=== PATIENT | female | born 1985 | race Caucasian/White ===

== ENCOUNTER 2018-09-07 06:50 | Day surgery (SDC) | payer OTHER ==
[2018-09-07] MEDS ORDERED: LIDOCAINE VISCOUS 2% 15 ML UDC MM STA (07:28)
[2018-09-07] MEDS ORDERED: MAG HYDROX/AL HYDROX/SIMETH 30 ML UDC PO STA (07:28)
[2018-09-07] MEDS ORDERED: SODIUM CHLORIDE 0.9% 1,000 ML IV ONE (07:28)
--- NOTE | 2018-09-07 07:32 | ED Physician Documentation ---
PD HPI ABD PAIN - Stated complaint Stated Complaint: ABD PX - Chief complaint Chief Complaint: Abd Pain - History obtained from History obtained from: Patient, Family - History of Present Illness Timing - onset: How many weeks ago (2) Timing - duration: Weeks (2) Timing - details: Gradual onset, Still present, Waxing and waning Quality: Cramping, Sharp, Pain Location: RUQ Radiation: Upper back Improved by: Other (nothing) Worsened by: Eating Associated symptoms: Nausea, Vomiting Similar symptoms before: Has not had sx before Recently seen: Clinic - Additional information Additional information: 32 y/o female previously well has developed abdominal pain after eating. She indicates this started about 2 weeks ago and at first was only after eating and she started some nexium and this did not seem to change the symptoms. She indicates that since 7pm last night she has had this pain persistent and she is vomiting bile. She indicates she took ibuprofen for a bad tooth for about 2 months and she discontinued this about one month ago. Review of Systems Constitutional: reports: Fever Eyes: denies: Decreased vision Ears: denies: Ear pain Nose: denies: Rhinorrhea / runny nose, Congestion Throat: denies: Sore throat Cardiac: denies: Chest pain / pressure, Palpitations Respiratory: denies: Dyspnea, Cough GI: reports: Abdominal Pain, Nausea, Vomiting : denies: Dysuria, Frequency Skin: denies: Rash Musculoskeletal: denies: Neck pain, Back pain, Extremity pain Neurologic: denies: Generalized weakness, Focal weakness, Numbness PD PAST MEDICAL HISTORY - Past Medical History Cardiovascular: None Respiratory: None Endocrine/Autoimmune: None GI: None 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 Tab] FLUoxetine [PROzac] 60 mg PO DAILY 11/09/15 11/09/15 oxyCODONE/ACET 5/325 [Percocet 5 1 - 2 each PO Q6H PRN #20 tablet 11/10/15 mg/325 mg] - Allergies Allergies/Adverse Reactions: Allergies Allergy/AdvReac Type Severity Reaction Status Date / Time No Known Drug Allergies Allergy Verified 09/07/18 06:59 - Social History Does the pt smoke?: Yes Smoking Status: Current every day smoker Does the pt drink ETOH?: No Does the pt have substance abuse?: No - Immunizations Immunizations are current?: Yes - POLST Patient has POLST: No PD ED PE NORMAL - Vitals Vital signs reviewed: Yes (normal ) - General General: Alert and oriented X 3, Well developed/nourished, Other (The patient appears to be in pain with client service coordinator tone and flat affect. ) - HEENT HEENT: Atraumatic, PERRL, EOMI - Neck Neck: Supple, no meningeal sign, No bony TTP - Cardiac Cardiac: RRR, No murmur - Respiratory Respiratory: No respiratory distress, Clear bilaterally - Abdomen Abdomen: Soft, Other (RUQ tenderness with arrest of inspiration with palpation. LUQ is not tender. Mild tenderness to the right CVA. ) - Back Back: No spinal TTP - Derm Derm: Normal color, Warm and dry, No rash - Extremities Extremities: No deformity, No edema - Neuro Neuro: Alert and oriented X 3, test analyst 2-12 intact, No motor deficit, No sensory deficit, Normal speech Eye Opening: Spontaneous Motor: Obeys Commands Verbal: Oriented GCS Score: 15 - Psych Psych: Normal mood, Normal affect Results - Vitals Vitals: Vital Signs - 24 hr 09/07/18 09/07/18 06:55 08:40 Temperature 36.5 C 36.6 C Heart Rate 78 78 Respiratory 18 16 Rate Blood Pressure 122/49 L 124/48 L O2 Saturation 100 99 Oxygen O2 Source Room air - Labs Labs: Laboratory Tests 09/07/18 09/07/18 09/07/18 07:45 07:45 07:45 WBC 6.7 RBC 4.60 Hgb 13.7 Hct 38.6 MCV 83.9 MCH 29.8 MCHC 35.5 RDW 12.9 Plt Count 339 MPV 6.8 L Neut # (Auto) 4.4 Lymph # (Auto) 1.8 Arthur # (Auto) 0.4 Eos # (Auto) 0.0 Baso # (Auto) 0.0 Absolute Nucleated RBC 0.01 Nucleated RBC % 0.1 Sodium 140 Potassium 3.3 L Chloride 106 Carbon Dioxide 25 Anion Gap 9.0 BUN 14 Creatinine 0.9 Estimated GFR (MDRD) 72 L Glucose 100 Calcium 9.5 Total Bilirubin 0.7 AST 24 ALT 12 Alkaline Phosphatase 49 Troponin I < 0.04 Total Protein 7.6 Albumin 4.4 Globulin 3.2 Albumin/Globulin Ratio 1.4 Lipase 28 - Rads (name of study) gb u/s Radiology: Prelim report reviewed (Impression: 1. Suggestion of slightly increased hepatic echogenicity, which is a nonspecific finding but is most commonly seen as sequela of hepatic steatosis. 2. Cholelithiasis without sonographic evidence for acute cholecystitis. 3. Nonobstructing right nephrolithiasis), EMP read indepedently, See rad report PD MEDICAL DECISION MAKING - ED course Complexity details: reviewed results, re-evaluated patient, considered differential, d/w patient, d/w family ED course: 32 y/o female with post prandial pain for 2 weeks has persistent pain since 7pm last night, has positive Archibald's sign and cholelithiasis. The study does not make sonographic criteria for cholecystitis. Dr. Barrera is consulted in the case . Departure - Departure Disposition: ED Transfer to [facility] Clinical Impression: Cholelithiasis Qualifiers: Cholelithiasis location: gallbladder Cholecystitis presence: without cholecystitis Biliary obstruction: without biliary obstruction Qualified Code(s): K80.20 - Calculus of gallbladder without cholecystitis without obstruction
[2018-09-07] MEDS ORDERED: HYDROmorphone 1 MG/ML CARPUJECT IVP STA ×2 (07:49→10:54)
[2018-09-07] MEDS ORDERED: ONDANSETRON 4 MG/2 ML VIAL IM STA (07:49)
[2018-09-07 07:52] LABS: BASOPHILS % (AUTO) 0.7 %; EOSINOPHILS % (AUTO) 0.6 %; HGB - HEMOGLOBIN 13.7 g/dL (12.0-16.0); LYMPHOCYTES # (AUTO) 1.8 10^3/uL (1.5-3.5); LYMPHOCYTES % (AUTO) 26.9 %; MEAN CORPUSCULAR HEMOGLOBIN 29.8 pg (27.0-31.0); MEAN CORPUSCULAR HGB CONC 35.5 g/dL (32.0-36.0); MEAN CORPUSCULAR VOLUME 83.9 fL (81.0-99.0); MEAN PLATELET VOLUME 6.8 fL (7.9-10.8); MONOCYTES # (AUTO) 0.4 10^3/uL (0.0-1.0); MONOCYTES % (AUTO) 6.2 %; NEUTROPHILS # (AUTO) 4.4 10^3/uL (1.5-6.6); NEUTROPHILS % (AUTO) 65.6 %; PLT - PLATELET COUNT 339 10^3/uL (130-450); RED CELL DISTRIBUTION WIDTH 12.9 % (12.0-15.0); WHITE BLOOD COUNT 6.7 x10^3/uL (4.8-10.8)
[2018-09-07] MEDS ORDERED: ONDANSETRON 4 MG/2 ML VIAL ONE (07:53)
[2018-09-07] MEDS ORDERED: HYDROmorphone 1 MG/ML CARPUJECT ONE (07:53)
[2018-09-07 08:07] LABS: ALBUMIN 4.4 g/dL (3.2-5.5); ALBUMIN/GLOBULIN RATIO 1.4 (1.0-2.2); BILIRUBIN,TOTAL 0.7 mg/dL (0.2-1.0); CALCIUM 9.5 mg/dL (8.5-10.3); CREATININE 0.9 mg/dL (0.4-1.0); TOTAL PROTEIN 7.6 g/dL (6.7-8.2)
[2018-09-07] MEDS ORDERED: ONDANSETRON 4 MG/2 ML VIAL IVP STA (08:12)
[2018-09-07] MEDS ORDERED: KETOROLAC 60 MG/2 ML VIAL IVP STA (08:38)
--- NOTE | 2018-09-07 09:01 | Ultrasound Report ---
Reason: RUQ pain Procedure Date: 09/07/2018 Accession Number: [id number] / [id number] Procedure: US - Abdomen Limited CPT Code: FULL RESULT: EXAM: ABDOMEN ULTRASOUND LIMITED, RUQ EXAM DATE: 09/07/2018 08:27 AM. CLINICAL HISTORY: RUQ pain. COMPARISON: CT of the abdomen and pelvis from 09/20/2015. TECHNIQUE: Real-time scanning was performed with static images obtained. FINDINGS: Liver: Slightly increased hepatic echogenicity. Overall size and echotexture within normal limits. Right hepatic lobe measures 13.5 cm longitudinally, which is within normal limits. Main portal vein flow: Hepatopetal. Gallbladder: There is a mobile stone measuring up to 8-9 mm. No gallbladder wall thickening or pericholecystic fluid. Biliary System: CBD measures 4 mm. No intrahepatic or extrahepatic ductal dilatation. Other: Right kidney measures 10.2 cm longitudinally. There is a nonobstructing calculus in the lower pole measuring 7 mm. IMPRESSION: 1. Suggestion of slightly increased hepatic echogenicity, which is a nonspecific finding but is most commonly seen as sequela of hepatic steatosis. 2. Cholelithiasis without sonographic evidence for acute cholecystitis. 3. Nonobstructing right nephrolithiasis. RADIA
[2018-09-07] MEDS ORDERED: POTASSIUM CHLOR 10 MEQ/100 ML 10 MEQ/100 ML BAG IV ONE (09:17)
[2018-09-07 09:32] LABS: BILIRUBIN,URINE NEGATIVE (NEGATIVE); GLUCOSE, URINE (UA) NEGATIVE (NEGATIVE); KETONES,URINE (UA) NEGATIVE (NEGATIVE); LEUKOCYTE ESTERASE, URINE NEGATIVE (NEGATIVE); NITRITE,URINE NEGATIVE (NEGATIVE); OCCULT BLOOD,URINE NEGATIVE (NEGATIVE); PROTEIN,URINE NEGATIVE (NEGATIVE); UROBILINOGEN,URINE 0.2 (NORMAL) E.U./dL (NORMAL)
[2018-09-07 09:35] LABS: CLARITY,URINE CLOUDY (CLEAR); HCG UR QUAL NEGATIVE
[2018-09-07 09:40] LABS: AMORPHOUS SEDIMENT,UR Marked /LPF; BACTERIA,URINE None Seen /HPF (None Seen); CRYSTALS,URINE 11-25 Ca Oxalate /LPF; RBC,URINE None Seen /HPF (0-5); SQUAMOUS EPITHELIAL CELL,UR RARE Squamous (<= Few)
--- NOTE | 2018-09-07 11:08 | ANESTHESIA ---
Pre-Anesthesia VS, & Labs - Diagnosis symptomatic cholelithiasis - Procedure Laparoscopic cholecystectomy Vital Signs: Temp Pulse Resp BP Pulse Ox 36.6 C 78 16 124/48 L 99 09/07/18 08:40 09/07/18 08:40 09/07/18 08:40 09/07/18 08:40 09/07/18 08:40 Height 6 ft Weight (kg) 93.4 kg Body Mass Index 27.9 - NPO >8 hours - Is Patient ?: No - Lab Results Current Lab Results: Laboratory Tests 09/07/18 07:45: Troponin I < 0.04 09/07/18 07:45: Sodium 140, Potassium 3.3 L, Chloride 106, Carbon Dioxide 25, Anion Gap 9.0, BUN 14, Creatinine 0.9, Estimated GFR (MDRD) 72 L, Glucose 100, Calcium 9.5, Total Bilirubin 0.7, AST 24, ALT 12, Alkaline Phosphatase 49, Total Protein 7.6, Albumin 4.4, Globulin 3.2, Albumin/Globulin Ratio 1.4, Lipase 28 09/07/18 07:45: WBC 6.7, RBC 4.60, Hgb 13.7, Hct 38.6, MCV 83.9, MCH 29.8, MCHC 35.5, RDW 12.9, Plt Count 339, MPV 6.8 L, Neut # (Auto) 4.4, Lymph # (Auto) 1.8, Vernon # (Auto) 0.4, Eos # (Auto) 0.0, Baso # (Auto) 0.0, Absolute Nucleated RBC 0 .01, Nucleated RBC % 0.1 Fish Bones: 09/07/18 07:45 09/07/18 07:45 Home Medications and Allergies Estrogen,Kourtney/Me-Testosterone [Estrogen-Methyltestos F.s. Tab] 1 tab PO DAILY 11/09/15 FLUoxetine [PROzac] 60 mg PO DAILY 11/09/15 Allergies/Adverse Reactions: Allergies Allergy/AdvReac Type Severity Reaction Status Date / Time No Known Drug Allergies Allergy Verified 09/07/18 06:59 Anes History & Medical History - Anesthetic History Anesthesia Complications: reports: No previous complications - Medical History Cardiovascular: reports: None Pulmonary: reports: None Gastrointestinal: reports: None Urinary: reports: Kidney stones Musculoskeletal: reports: None Endocrine/Autoimmune: reports: None Blood Disorders: reports: None Skin: reports: None Smoking Status: Current every day smoker - Surgical History General: Other Exam General: Alert Dental: WNL Mouth Opening: Greater than 4 Fingerbreadths Mallampati classification: II Thyromental Distance: greater than 6 cm Respiratory: Lungs clear Cardiovascular: Regular rate Mental/Cognitive Status: Alert/Oriented X3 Plan Anesthesia Type: General Consent for Procedure(s) Verified and Reviewed: Yes Code Status: Attempt Resuscitation ASA classification: 2-Mild systemic disease Is this case an emergency?: Yes
[2018-09-07] MEDS ORDERED: BUPIVACAINE 0.5% PF 30 ML VIAL ONE (11:15)
--- NOTE | 2018-09-07 11:25 | CONSULTATION NOTE ---
Referring Provider Name of Referring Provider:: Dr. Oh Martinez Consult Date: 09/07/18 Chief Complaint - Chief Complaint Chief Complaint: Severe unremitting RUQ pain History of Present Illness - Admitted From Admitted From:: Not admitted - outpatient only. - History Obtained From Records Reviewed: Yes. History obtained from: Patient, Dr. Martinez, chart. Exam Limitations: None. - History of Present Illness HPI Comment/Other: I was asked by Dr. Martinez to evaluate this very pleasant 32-year-old female for the possibility of symptomatic cholelithiasis. Actually, the diagnosis is easily made as she has had 2 weeks of worsening postprandial pain. She i nitially thought this was an ulcer. Her imagination had the ulcer spreading acid throughout her abdomen worsening her abdominal pain. She describes the pain as severe, present in the right upper quadrant, and penetrating either front to back or back to front. It has been unremitting. She try to avoid coming to the emergency department but finally could not. She has never been . She does describe frequent weight loss. The symptoms were associated with nausea and vomiting. She states is that she has been diagnosed with irritable bowel syndrome as well. 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 Tab] FLUoxetine [PROzac] 60 mg PO DAILY 11/09/15 11/09/15 oxyCODONE/ACET 5/325 [Percocet 5 1 - 2 each PO Q6H PRN #20 tablet 11/10/15 mg/325 mg] - Allergies Allergies/Adverse Reactions: Allergies Allergy/AdvReac Type Severity Reaction Status Date / Time No Known Drug Allergies Allergy Verified 09/07/18 06:59 Review of Systems - Constitutional Constitutional: denies: Fatigue, Fever, Chills, Malaise - Eyes Eyes: denies: Pain - Ears, Nose & Throat Ears, Nose & Throat: denies: Ear pain - Cardiovascular Cariovascular: denies: Irregular heart rate, Palpitations, Chest pain - Respiratory Respiratory: denies: Cough, Sputum production - Gastrointestinal Gastrointestinal: reports: Abdominal pain, Constipation, Diarrhea, Nausea, Vomiting - Musculoskeletal Musculoskeletal: denies: Muscle pain, Back pain - Neurological Neurological: denies: General weakness, Focal weakness Exam - Vital Signs Reviewed Vital Signs: Yes Vital Signs: Vital Signs x48h Temp Pulse Resp BP Pulse Ox 09/07/18 11:12 60 14 100/62 100 09/07/18 08:40 36.6 C 78 16 124/48 L 99 09/07/18 06:55 36.5 C 78 18 122/49 L 100 - Physical Exam General Appearance: positive: Mild distress, Moderate distress Eyes Bilateral: positive: No lid inflammation, Conjunctivae nml, No scleral icterus ENT: positive: Dry mucous membranes Neck: positive: Trachea midline Respiratory: positive: Chest non-tender, No respiratory distress, Breath sounds nml Cardiovascular: positive: Regular rate & rhythm Abdomen: positive: No organomegaly, Nml bowel sounds, Tenderness (Right upper quadrant.) Skin: positive: Color nml Extremities: positive: Non-tender, Nml appearance Neurologic/Psychiatric: positive: Oriented x3 Conclusion/Plan - Diagnosis Diagnosis: Symptomatic cholelithiasis (severe) - Plan Plan: Laparoscopic cholecystectomy, possible open cholecystectomy, possible intraoperative cholangiogran, possible common bile duct exploration. The indications, procedure, alternatives including no surgery, ingestion of Actigall, possible risks including infection (deep or superficial), bleeding requiring transfusion (with all of its risks), common bile duct injury requring repair and additional surgery, and were fully explained to the patient and all questions answered. I also explained the pathophysiology. I explained that following the surgery I did not want her lifting anything over 15 pounds for 6 weeks to allow for optimal healing and to decrease the likelihood that a hernia would occur. All questions were fully answered. Verbal and written consent was obtained. The patient, in preparation for surgery will be nothing by mouth, and receive 2 gm of Cephalexin with induction. I asked her to contact me with any surgical questions and her concerns and she stated that she would. I asked her to let me know if there is any way we can make her stay at [facility] more comfortable and she stated that she would let me know. The plan is to do this operation as an outpatient procedure and to discharge her home following the procedure. 45 minutes of [id number] time spent with the patient, over 80% in discussion, coordination of her care, and completion of the requisite paperwork Dragon disclaimer: This document was created in part using voice recognition technology. Because of the inherent limitations of the system ([employer]'s [employer] D[employer] user manual states that the licensee understands that speech recognition is a statistical process and that recognition errors are inherent in the process), occasional same sounding word substitutions and grammatical errors do occur and persist despite proofreading. Please read this document for context. - Lab Results Lab results reviewed: Yes Skip Bones: 09/07/18 07:45 09/07/18 07:45 - Diagnostic Imaging Results Diagnostic Imaging Results: positive: Final report reviewed, Read independently Diagnostic Imaging Results Comments: Consistent with a massively dilated gallbladder with a stone stuck in the neck.
[2018-09-07] MEDS ORDERED: BUPIVACAINE 0.5% PF 30 ML VIAL SUBQ ONE (12:04)
[2018-09-07] MEDS ORDERED: LACTATED RINGERS 1,000 ML IV ONE ×2 (12:06→13:45)
[2018-09-07] MEDS ORDERED: ROCURONIUM 50 MG/5 ML VIAL IVP ONE (13:00)
[2018-09-07] MEDS ORDERED: MIDAZOLAM 2 MG/2 ML VIAL IVP ONE (13:00)
[2018-09-07] MEDS ORDERED: PROPOFOL 200 MG/20 ML VIAL IVP ONE (13:00)
[2018-09-07] MEDS ORDERED: ceFAZolin 1 GM VIAL IV ONE (13:00)
[2018-09-07] MEDS ORDERED: GLYCOPYRROLATE 1 MG/5 ML VIAL IVP ONE (13:00)
[2018-09-07] MEDS ORDERED: ACETAMINOPHEN 1,000 MG/100 ML 100 ML IV ONE (13:00)
[2018-09-07] MEDS ORDERED: KETOROLAC 30 MG/ML VIAL IVP ONE (13:00)
[2018-09-07] MEDS ORDERED: fentaNYL 100 MCG/2 ML VIAL IVP ONE (13:00)
[2018-09-07] MEDS ORDERED: LIDOCAINE-MPF 2% 5 ML VIAL IM ONE (13:00)
[2018-09-07] MEDS ORDERED: NEOSTIGMINE 1 MG/1 ML 10 ML MDV IVP ONE (13:00)
[2018-09-07] MEDS ORDERED: DEXAMETHASONE 4 MG/ML VIAL IVP ONE (13:00)
[2018-09-07] MEDS ORDERED: HYDROmorphone 0.5 MG/0.5 ML SYRINGE IVP PRN (13:14)
[2018-09-07] MEDS ORDERED: ONDANSETRON 4 MG/2 ML VIAL IVP PRN (13:14)
[2018-09-07] MEDS ORDERED: oxyCODONE 5 MG TABLET PO PRN (13:14)
--- NOTE | 2018-09-07 13:23 | OPERATIVE REPORT ---
Operative Report - General Procedure Date: 09/07/18 Planned Procedure: Laparoscopic cholecystectomy, possible open cholecystectomy, possible intra Pre-Op Diagnosis: Symptomatic cholelithiasis (severe) Procedure Performed: Laparoscopic cholecystectomy Post Op Diagnosis: Same - Procedure Note Primary Surgeon: Oh Serra MD Anesthesia Provider: Frances Kwong CRNA Anesthesia Technique: General ET tube, Local (30 mL of half percent Marcaine) Estimated Blood Loss (mL): 30 Drain/Tube Type: Other (None.) Complications: None. - Other Other Information/Narrative: OPERATIVE DESCRIPTION/REPORT: After verbal and written informed consent was obtained detailing the risks of infection, bleeding with all of its risks including transfusion, common bile duct injury, and the patient was brought to the operative suite and placed in the supine position on the operating room table. Monitoring devices were applied along with TEDs and pneumatic compressive stockings. Care was taken to avoid pressure points. Prophylactic antibiotics were given. An adequate level of general endotracheal anesthesia was established by Frances Kwong CRNA. The abdomen was then prepped with ChloraPrep and draped in a sterile fashion. A "time in" then confirmed that the patient was identified with 3 identifiers (name, date and medical record number), the history and physical was in the chart, the signed consent confirming the procedure was in the chart, the patient was in the correct position, the aforementioned prophylactic measures were in place or given, we had the correct personnel and equipment to complete the procedure and that anesthesia, surgery and nursing were given an opportunity to express any concerns. The initial incision was at the umbilicus and dissection to the linea alba was completed using blunt dissection. The linea alba was grasped with a Rip and incised. In a similar manner the peritoneum was grasped and incised using Metzenbaum scissors. In this location, a 12 mm blunt tipped, balloon tipped port was placed and the balloon was inflated to keep the port in position. The abdominal cavity was insufflated with carbon dioxide to steady-state pressure of 15 mmHg. Three additional 5 mm ports were placed in standard location for laparoscopic cholecystectomy (subxiphoid and 2 right subcostal) under direct vision of the 30 degree laparoscope and without incident. The patient was then placed in reverse Trendelenburg position and was rotated slightly to their left. The gallbladder fundus was grasped with an atraumatic grasper. Multiple adhesions had to be taken down by blunt and sharp dissection along with electrocautery. The omentum was densely adherent to the gallbladder. Simple traction and countertraction was not working so Bovie electrocautery was used to score the omentum and provided an edge to grasp and pull down. In doing so the gallbladder itself was entered with leakage of green brown bile. This was suctioned up. With gallbladder decompression it did make grasping the gallbladder it significantly easier. Eventually, we identified the infundibulum, and this was then grasped and retracted inferior and laterally. Dissection was then begun in the angle of Calot. The cystic duct and (slightly medially and posteriorly) cystic artery were clearly identified. The critical view was obtained. The cystic artery, during the dissection, had been transected using Bovie electrocautery and was not bleeding. Upon placement of the first clip bleeding started and the second clip compressed the jaws of the first clip resulting in hemostasis. Two clips proximally and one clip distally were used to control the cystic duct. The clips were carefully placed to avoid occluding the juncture with the common bile duct. The cystic duct was then graham sected with laparoscopic vaibhav. The gallbladder was then removed from its fossa in a retrograde fashion using electrocautery. With the 30 degree 5 mm scope in the subxiphoid position, the gallbladder was placed in an EndoCatch bag to be extracted through the 12 mm port site. I irrigated the right upper quadrant with 2 liters of warm sterile saline, and the area was aspirated dry. I inspected the gallbladder fossa and there was no bleeding or bile leak. Clips on the cystic duct and cystic artery appeared to be secure. Some small bleeding vessels in the omentum were controlled using Bovie electrocautery. I briefly visually explored the abdomen. There was no other evidence of overt pathology. I injected the port sites at the peritoneal, fascial, and skin levels under direct vision with 0.5% Marcaine. All ports and the EndoCatch containing the gallbladder were removed. Following gallbladder removal, the remaining carbon dioxide was expelled from the abdomen. The fascia at the umbilicus was reapproximated using 2 [id number] 0 Vicryl sutures. The skin at each port site was approximated using a subcuticular 4-0 Monocryl. The surgical count of instruments, needles and sponges was reported as correct twice. Mastisol, Steri-Strips and sterile surgical dressings were applied. The patient was then awakened from anesthesia, extubated, and having tolerated the procedure well, was transported to the recovery room. No complications were encountered. A "time out" confirmed the operation performed, the fluids given, the estimated blood loss and anesthesia, surgery and nursing were given an opportunity to express any concerns. Dragon disclaimer: This document was created in part using voice recognition technology. Because of the inherent limitations of the system ([employer]'s [employer] Dictate user manual states that the licensee understands that speech recognition is a statistical process and that recognition errors are inherent in the process), occasional tian e sounding word substitutions and grammatical errors do occur and persist despite proofreading. Please read this document for context.
[2018-09-07] MEDS ORDERED: MEPERIDINE 50 MG/ML VIAL ONE (13:38)
[2018-09-07] MEDS ORDERED: fentaNYL 100 MCG/2 ML VIAL ONE (13:42)
[2018-09-07 17:29] VITALS: BP 99/61
== END 2018-09-07 19:10 | disposition home or self-care (01) ==
LOC: ED 06:50 → SDS 10:50 → MS2 14:14 → SDS 19:10
PROVIDERS: ATTEND Surgery
PROC: 0FT44ZZ Resection of Gallbladder, Percutaneous Endoscopic Approach (ICD-10-PCS; principal; 2018-09-07 11:30)
DX: K80.10 Calculus of gallbladder with chronic cholecystitis without obstruction (principal); K82.8 Other specified diseases of gallbladder; K58.9 Irritable bowel syndrome, unspecified; F17.200 Nicotine dependence, unspecified, uncomplicated
CPT/HCPCS: 36415; 47562; 76705; 80053; 81001; 81025; 83690; 84484; 85025; 96365; 96375; 96376; 99283; 99285; A9270; J0131; J1170; J2175; J7120; 81003; 87086

== ENCOUNTER 2018-12-18 14:35 | Outpatient (CLI) | payer OTHER ==
--- NOTE | 2018-12-18 21:37 | MRI Report ---
Reason: CERVICALGIA Procedure Date: 12/18/2018 Accession Number: [id number] / [id number] Procedure: MRI - Cervical Spine W/O CPT Code: FULL RESULT: EXAM: MRI CERVICAL SPINE WITHOUT CONTRAST. EXAM DATE: 12/18/2018 03:08 PM. CLINICAL HISTORY: Cervicalgia. Left side cervical radiculopathy. Headaches. COMPARISONS: None. TECHNIQUE: Multiplanar, multisequence T1-weighted and fluid-sensitive sequences of the cervical spine without contrast. Other: None. FINDINGS: Neurologic Structures: The visualized posterior fossa structures are unremarkable. No signal abnormality in the visualized spinal cord. Alignment: Mild focal cervical lordosis reversal at C3-C4. Bone Marrow: Minimal chronic C4 vertebral body height loss compared to the adjacent vertebral bodies. No acute marrow edema. Interspace Levels/Facets: C1-C2: Unremarkable. C2-C3: Unremarkable. C3-C4: Mild disk space dehydration and narrowing. Shallow broad-based bulge. Left side mild uncinate process spurring and hypertrophy accompanied by additional asymmetric left intraforaminal protrusion. Mild ventral thecal sac effacement by the broad-based posterior bulge. No cord compression. Central stenosis is mild. Foraminal stenosis on the left is also present and appears mild from asymmetric left intraforaminal disk osteophyte complex. Unremarkable facets. C4-C5: Minimal posterior disk space narrowing but no disk herniation or stenosis. C5-C6: Minimal posterior disk space narrowing. Slight annular bulge but no extrusion or stenosis. C6-C7: Minimal posterior disk space narrowing. No stenosis or disk herniation. C7-T1: Minimal posterior disk space narrowing. No disk herniation or stenosis. Minimal facet arthropathy. Musculature: Normal. No edema or fatty atrophy. Other: The paravertebral and prevertebral soft tissues are normal. IMPRESSION: 1. Chronic appearing degenerative changes are present with mild central stenosis and left foraminal stenosis at C3-C4. 2. Additional minimal degenerative changes without other evidence of cervical stenosis. 3. No focal cord signal abnormality. 4. Minimal chronic C4 vertebral body height loss. This likely contributes to mild focal cervical lordosis reversal at C3-C4. RADIA
== END 2018-12-18 14:36 | disposition home or self-care (01) ==
LOC: DI 14:35
PROVIDERS: ATTEND Registered Nurse
DX: M48.02 Spinal stenosis, cervical region (principal)
CPT/HCPCS: 72141

== ENCOUNTER 2020-02-09 12:47 | Outpatient (CLI) | payer OTHER ==
[2020-02-09] MEDS ORDERED: IOVERSOL 320 100 ML VIAL IVP ONE ×2 (12:56→13:32)
--- NOTE | 2020-02-10 14:52 | CT Report ---
Reason: PLEURITIC CHEST PAIN, HX OF KIDNEY STONE Procedure Date: 02/09/2020 Accession Number: [id number] / [id number] Procedure: CT - Abdomen/Pelvis WO CPT Code: Final Report FULL RESULT: EXAM: CT ABDOMEN AND PELVIS WITHOUT IV CONTRAST EXAM DATE: 02/09/2020 01:17 PM. CLINICAL HISTORY: Pleuritic chest pain. Right flank pain. History of urinary tract calculi. COMPARISONS: Noncontrast abdomen and pelvis CT done 09/20/2015. TECHNIQUE: Routine helical CT imaging was performed through the abdomen and pelvis. IV contrast: None. Enteric contrast: None. Reconstructions: Coronal and sagittal. In accordance with CT protocol optimization, one or more of the following dose reduction techniques were utilized for this exam: automated exposure control, adjustment of mA and/or KV based on patient size, or use of iterative reconstructive technique. FINDINGS: Lung Bases: The lungs are clear. No pleural or pericardial effusion. Liver: Normal. No masses visible on noncontrast imaging. Gallbladder/Bile Ducts: Cholecystectomy. No bile duct dilatation. Spleen: Normal. 6 mm accessory spleen. Pancreas: Normal. Adrenal Glands: Normal. Kidneys: 3 right renal calculi, the largest is in the lower pole, 9 mm. Collection of calculi in the lower pole of the left kidney measuring up to 12 mm maximal diameter. No ureteral calculi. No urinary tract dilatation. Peritoneal Cavity/Bowel: No bowel dilatation. No free fluid, free air or adenopathy. No masses or acute inflammatory process. The appendix is well visualized and normal. Pelvic Organs: The urinary bladder appears normal. Uterus is been removed. No mass, adenopathy, or fluid collection. Vasculature: Normal. Bones: Normal. IMPRESSION: Bilateral nonobstructing renal calculi. No ureteral calculi or urinary tract dilatation. Status post cholecystectomy and hysterectomy. [facility]
--- NOTE | 2020-02-10 15:06 | CT Report ---
Reason: PLEURITIC CHEST PAIN, HX OF KIDNEY STONE Procedure Date: 02/09/2020 Accession Number: [id number] / [id number] Procedure: CT - CHEST W CPT Code: Final Report FULL RESULT: EXAM: CT CHEST WITH IV CONTRAST EXAM DATE: 02/09/2020. CLINICAL HISTORY: Pleuritic chest pain. Right flank pain. COMPARISONS: None. TECHNIQUE: Routine helical CT imaging was performed through the chest. IV contrast: 80 cc of Optiray 320. Reconstructions: Coronal and sagittal. Axial MIP. In accordance with CT protocol optimization, one or more of the following dose reduction techniques were utilized for this exam: automated exposure control, adjustment of mA and/or KV based on patient size, or use of iterative reconstructive technique. FINDINGS: Lungs/Pleura: No nodules, bronchial thickening, consolidation, or edema. Pulmonary vasculature is normal. No pleural fluid or pneumothorax. Mediastinum: Heart size is normal. No pericardial effusion. No adenopathy. No vascular abnormality. Bones: Normal. Upper Abdomen: 6 mm hypodense nodule in the liver, unchanged from 09/20/2015 and consistent with a cyst. Cholecystectomy and bilateral renal calculi. IMPRESSION: Normal chest CT with IV contrast. [facility]
== END 2020-02-09 12:48 | disposition home or self-care (01) ==
LOC: DI 12:47
PROVIDERS: ATTEND Registered Nurse
DX: N20.0 Calculus of kidney (principal); K76.89 Other specified diseases of liver; R07.1 Chest pain on breathing; Z90.49 Acquired absence of other specified parts of digestive tract; Z90.710 Acquired absence of both cervix and uterus
CPT/HCPCS: 71260; 74176; Q9967

== ENCOUNTER 2020-02-17 14:47 | Outpatient (CLI) | payer OTHER ==
--- NOTE | 2020-02-17 17:04 | Ultrasound Report ---
Reason: RUQ PAIN POST CHOLECYSTECTOMY Procedure Date: 02/17/2020 Accession Number: [id number] / [id number] Procedure: US - Abdomen Limited CPT Code: Final Report FULL RESULT: EXAM: ABDOMEN ULTRASOUND LIMITED, RUQ EXAM DATE: 02/17/2020 03:47 PM. CLINICAL HISTORY: Right upper quadrant pain post cholecystectomy. COMPARISON: CT ABDOMEN/PELVIS W/O 02/09/2020 1:07 PM. TECHNIQUE: Real-time scanning was performed with static images obtained. FINDINGS: Liver: Normal in size and echotexture. 15.2 cm. Main portal vein flow: Hepatopetal. Gallbladder: Surgically absent. No abnormal collections. Biliary System: CBD measures 2-4 mm. No intrahepatic or extrahepatic ductal dilatation. Other: No right hydronephrosis. Nonobstructing right renal calculi are present measuring up to 0.7 cm. IMPRESSION: 1. No acute sonographic abnormality. 2. There are nonobstructing right renal calculi, grossly similar compared to the prior CT. [facility]
== END 2020-02-17 14:48 | disposition home or self-care (01) ==
LOC: DI 14:47
PROVIDERS: ATTEND Registered Nurse
DX: R10.11 Right upper quadrant pain (principal); M50.21 Other cervical disc displacement, high cervical region; M48.02 Spinal stenosis, cervical region
CPT/HCPCS: 72141; 76705

== ENCOUNTER 2020-02-17 14:48 | Outpatient (CLI) | payer OTHER ==
--- NOTE | 2020-02-17 21:46 | MRI Report ---
Reason: CERVICAL STENOSIS, WORSENING PAIN AND LT ARM PARES Procedure Date: 02/17/2020 Accession Number: [id number] / [id number] Procedure: MRI - Cervical Spine W/O CPT Code: Final Report FULL RESULT: EXAM: MRI CERVICAL SPINE WITHOUT CONTRAST EXAM DATE: 02/17/2020 04:52 PM. CLINICAL HISTORY: Cervical stenosis, worsening pain and left arm paresthesias. COMPARISONS: CERVICAL SPINE W/O 12/18/2018 3:08 PM. TECHNIQUE: Multiplanar, multisequence T1-weighted and fluid-sensitive sequences of the cervical spine without contrast. Other: None. FINDINGS: Neurologic Structures: The visualized posterior fossa structures are unremarkable. No signal abnormality in the visualized spinal cord. Alignment: No scoliosis or spondylolisthesis. Bone Marrow: No gross fractures or bone lesions. No marrow edema. Interspace Levels/Facets: C1-C2: Unremarkable. C2-C3: Unremarkable. C3-C4: Small posterior central disk protrusion. Mild canal stenosis. Minimal left foraminal narrowing. No change. C4-C5: Unremarkable. C5-C6: Unremarkable. C6-C7: Unremarkable. C7-T1: Unremarkable. Musculature: Normal. No edema or fatty atrophy. Other: The paravertebral and prevertebral soft tissues are normal. IMPRESSION: 1. Small posterior central disk protrusion causing mild canal stenosis at C3-C4. Minimal left foraminal narrowing. No change since the prior study. [facility]
== END 2020-02-17 14:49 | disposition home or self-care (01) ==
LOC: DI 14:48
PROVIDERS: ATTEND Registered Nurse
DX: M50.21 Other cervical disc displacement, high cervical region (principal); M48.02 Spinal stenosis, cervical region
CPT/HCPCS: 72141

== ENCOUNTER 2020-03-28 15:18 | Outpatient (CLI) | payer OTHER ==
--- NOTE | 2020-03-28 16:51 | XRAY Report ---
PROCEDURE: Abdomen 1 View X-Ray INDICATIONS: NEPHROLITHIASIS TECHNIQUE: 1 view of the abdomen were acquired. COMPARISON: FINDINGS: Surgical changes and devices: None. Bowel: No pneumoperitoneum. The bowel gas pattern is normal. Soft tissues: No masses; visualized solid organ contours appear normal in size. No new suspicious a bdominal calcifications, and the calculi present within the collecting system of each kidney seen by CT scanning 02/09/2020 are relatively subtle but present, superimposed upon by moderate colonic obstip ation. These calculi appear relatively radiolucent. Bones: No suspicious bony abnormalities. IMPRESSION: Prior calculi present on CT scanning likely have not changed but are relatively poorly s een and for example if they were superimposed upon pelvic osseous structures would not be visualized. There are 2 calculi on the right at the mid and lower kidney area, and also 2 on the left also at th e lower third of the kidney. These have not changed in size from prior CT scanning. Reviewed by: Erick Dietrich MD on 03/28/2020 4:50 PM PDT Approved by: Erick Dietrich MD on 03/28/2020 4:50 PM PDT Station ID: [id number]
[2020-03-28 20:03] LABS: BILIRUBIN,URINE NEGATIVE (NEGATIVE); GLUCOSE, URINE (UA) NEGATIVE (NEGATIVE); KETONES,URINE (UA) NEGATIVE (NEGATIVE); LEUKOCYTE ESTERASE, URINE NEGATIVE (NEGATIVE); NITRITE,URINE NEGATIVE (NEGATIVE); OCCULT BLOOD,URINE MODERATE (NEGATIVE); PROTEIN,URINE NEGATIVE (NEGATIVE); UROBILINOGEN,URINE 0.2 (NORMAL) E.U./dL (NORMAL)
[2020-03-28 20:09] LABS: BACTERIA,URINE None Seen /HPF (None Seen); CLARITY,URINE CLEAR (CLEAR); SQUAMOUS EPITHELIAL CELL,UR NONE SEEN (<= Few)
== END 2020-03-28 15:19 | disposition home or self-care (01) ==
LOC: DI.S 15:18
PROVIDERS: ATTEND Urology
DX: N20.0 Calculus of kidney (principal); Z11.59 Encounter for screening for other viral diseases
CPT/HCPCS: 74018; 81001; 81599; 87086